=== PATIENT | female | born 1975 | race Caucasian/White ===

== ENCOUNTER 2017-08-07 07:45 | Observation (INO) | payer OTHER ==
--- NOTE | 2017-07-26 18:27 | HP ---
CC: Jose Elias Hutson NP, [facility]; Dr. Facundo Leal * ADMISSION HISTORY AND PHYSICAL: DATE OF ADMISSION: 08/07/17 ATTENDING SURGEON: Dr. Mitchell Alexis * (DARLENE Johnson, dictating). CHIEF COMPLAINT: Ventral incisional hernia. HISTORY OF PRESENT ILLNESS: This is a 41-year-old female, who underwent right colectomy in November of 2014 for what turned out to be a T3N0 carcinoma. She was treated with postoperative adjuvant chemotherapy. She has had 2 colonoscopies since surgery, the most recent showing no evidence of recurrence. Her CEA levels had been normal. Over the past year or so, she has noted a bulge in the abdomen, to the right of the umbilicus. This has never been painful or associated with any obstruction symptoms, i.e., abdominal cramping, nausea, vomiting, or change in bowels. She was seen recently by Dr. Alexis and was referred for CT scan of the abdomen and pelvis. That study confirmed the presence of a ventral hernia containing loops of small bowel, without obstruction. Dr. Alexis has discussed with her the indications for surgery, the risks, benefits, and alternatives, and we reviewed today the expected perioperative course. She would like to proceed as scheduled with open repair of ventral incisional hernia with mesh. PAST MEDICAL HISTORY: 1. Colon cancer (under the care of Dr. Leal). 2. Obesity (she has actively been trying to lose weight and is down a total of 55 pounds from her baseline). 3. She did develop a left upper extremity and internal jugular DVT in relation to a left-sided PowerPort, which was placed for chemotherapy. She was treated with anticoagulation until after the port was removed and has had no other subsequent problems. PAST SURGICAL HISTORY: Include: 1. Right colectomy, as noted above. 2. x2 via Pfannenstiel incision. 3. Placement and subsequent removal of left-sided PowerPort. CURRENT MEDICATIONS: She takes no prescription medications. She does take the following supplements: 1. Ferrous sulfate 325 mg once daily. 2. [place]-3 supplement. 3. Vitamin B12. 4. Probiotics. ALLERGIES: BIAXIN (hives), TEGADERM (blistering). FAMILY HISTORY: Positive for colorectal cancer in a paternal grandfather. Family history is negative for anesthesia problems, bleeding, or clotting disorders. SOCIAL HISTORY: The patient is . She works as a elementary vocal music teacher. She has never smoked. She denies alcohol use or other recreational drugs. REVIEW OF SYSTEMS: General: No recent constitutional symptoms or acute illnesses. Intentional weight loss as noted above. Cardiovascular: No chest pain, palpitations, history of hypertension. Respiratory: No history of asthma , chronic cough, or shortness of breath. GI: No problems reported. Most recent colonoscopy last year. : No problems reported. [employer]OR[employer] LAW[employer]ER: She has annual breast and pelvic exams done. She has not yet had an initial screening mammogram. No problems reported. PHYSICAL EXAMINATION GENERAL: Well-nourished, well-developed female, in no acute distress. VITAL SIGNS: Height 66 inches, weight 203 pounds. Other vital signs per nursing. HEENT: Pupils are equal, round, and reactive. EOMs intact. No conjunctival pallor. Oropharynx: Teeth in good repair. No intraoral lesions. Mucous membranes are moist. NECK: No lymphadenopathy in the cervical or supraclavicular areas. No neck masses or thyromegaly. LUNGS: Clear to auscultation. No wheezes. HEART: Regular rate and rhythm. No murmur noted. BREASTS: Not examined. ABDOMEN: Well-healed midline incision. In the supine position, the abdomen is soft, and nontender, without palpable masses or organomegaly. In the standing position, there is an obvious bulge, which is soft, nontender, and reducible, just to the right of the umbilicus. BACK: No spinous process or CVA tenderness. EXTREMITIES: No edema. NEUROLOGICAL: Grossly intact. SKIN: Warm and dry. No suspicious rashes or lesions. IMPRESSION: Ventral incisional hernia. PLAN: Open repair of ventral incisional hernia with mesh. DARLENE JOHNSON [id number]/[facility] #: [id number] MTDMel
[2017-08-09] MEDS ORDERED: Buffered Lidocaine 0.9% SYRIN* 5 ML/SYR SYRINGE INTRADERM ONE (09:53)
[2017-08-10] MEDS ORDERED: Sodium Citrate/Citric Acid* 15 ML UDC PO ONE (06:00)
[2017-08-10] MEDS ORDERED: Buffered Lidocaine 0.9% SYRIN* 5 ML/SYR SYRINGE ONE (10:41)
[2017-08-10] MEDS ORDERED: ceFAZolin 1 GM in Dextrose (*) 2 GM/100 ML BAG IVPB ONE (10:41)
[2017-08-10] MEDS ORDERED: Sodium Citrate/Citric Acid* 15 ML UDC ONE (10:41)
[2017-08-10] MEDS ORDERED: Heparin VIAL(*) 5000 UNITS/ML VIAL (FIVE THOUSAND) ONE (10:41)
[2017-08-10] MEDS ORDERED: Dexamethasone IV* 4 MG/ML 1 ML (4 MG) ONE (11:26)
[2017-08-10] MEDS ORDERED: Propofol* 10 MG/ML 20 ML BTL IV PUSH ONE (11:26)
[2017-08-10] MEDS ORDERED: Rocuronium* 10 MG/ML VIAL ONE (11:26)
[2017-08-10] MEDS ORDERED: Lidocaine 1.5% EPI 1:200,000* 30 ML SDV ONE (11:27)
[2017-08-10] MEDS ORDERED: fentaNYL* 50 MCG/ML 2 ML VIAL (100 MCG VIAL) ONE ×2 (11:27→14:31)
[2017-08-10] MEDS ORDERED: Midazolam* 1 MG/ML 2 ML VIAL (2 MG) ONE (11:27)
[2017-08-10] MEDS ORDERED: Bupivacaine 0.25% SDV* 30 ML ONE (11:27)
[2017-08-10] MEDS ORDERED: KETAMINE HCL* 50 MG/ML 10 ML VIAL ONE (12:08)
[2017-08-10] MEDS ORDERED: Cisatracurium* 2 MG/ML MDV 5 ML ONE (12:42)
[2017-08-10] MEDS ORDERED: fentaNYL* 50 MCG/ML 2 ML VIAL (100 MCG VIAL) IV PRN (14:11)
[2017-08-10] MEDS ORDERED: Scopolamine 1.5 mg* PATCH TRANSDERM PRN (14:11)
[2017-08-10] MEDS ORDERED: DiMENhydriNATE IV* 50 MG/ML VIAL IV PUSH PRN (14:11)
[2017-08-10] MEDS ORDERED: DiMENhydriNATE IV* 50 MG/ML VIAL ONE (15:12)
[2017-08-10] MEDS ORDERED: Scopolamine 1.5 mg* PATCH ONE (15:12)
[2017-08-10] MEDS ORDERED: Ketorolac INJ* 30 MG/ML 1 ML VIAL ONE (15:31)
[2017-08-10] MEDS ORDERED: Ondansetron INJ* 2 MG/ML VIAL IV PRN (15:37)
[2017-08-10] MEDS ORDERED: Acetaminophen TAB* 325 MG PO PRN (15:37)
[2017-08-10] MEDS ORDERED: oxyCODONE/Acetamin 5/325 MG* TAB PO PRN (15:37)
[2017-08-10] MEDS ORDERED: HYDROmorphone INJ* 1 MG/ML CARPUJECT SYRINGE IV PRN (15:37)
[2017-08-10] MEDS: Ketorolac INJ* 30 MG/ML 1 ML VIAL IV SCH ×2 (17:45→21:56)
[2017-08-10] MEDS: Docusate CAP* 100 MG PO SCH (21:53)
[2017-08-10] MEDS: Heparin VIAL(*) 5000 UNITS/ML VIAL (FIVE THOUSAND) SUBCUT SCH (21:54)
[2017-08-11] MEDS: Ketorolac INJ* 30 MG/ML 1 ML VIAL IV SCH ×4 (03:48→15:57)
--- NOTE | 2017-08-11 04:32 | OP ---
CC: Dr. Ronaldo Browning; [facility]; Dr. Facundo Leal OPERATIVE REPORT: DATE OF OPERATION: 08/10/17 DATE OF : 79 SURGEON: Ronaldo Browning MD BUILDING SPECIALIST: Maggie Evans NP ANESTHESIOLOGIST: Danish Stevenson DO ANESTHESIA: General anesthetic, local infiltration. PRE-OP DIAGNOSIS: Incisional ventral hernia. POST-OP DIAGNOSIS: Incisional ventral hernia. OPERATIVE PROCEDURE: Open repair of incisional ventral hernia with mesh via posterior component separation. DESCRIPTION OF PROCEDURE: The patient was supine on the operative table. After adequate general anesthetic, compression stockings, Daniel Hugger warmer, intravenous antibiotics, and Lakhani catheterization, the abdomen was prepped with antiseptic, draped in a sterile fashion. Previous midline incision was re- entered and large periumbilical region hernia was identified. This was approximately 6 to 7 cm in width and about 10 cm in craniocaudal direction, although a secondary hernia of about 1 cm or 2 was found about 1 cm superior to this site. The fascia was entered and the preperitoneal plane was entered to take the hernia sac off the posterior rectus. This was easily accomplished in the lower abdomen, not so much in the upper abdomen. The posterior rectus was entered medially and mobilized and this did not prove to be quite enough to allow closure, so posterior component separation was carried out into the transversus abdominis and it required bilateral release to get this to close. It was released over approximately an 8- to 10-cm area. This allowed closure of the posterior sheath of the rectus, and in the lower abdomen it was really more of a peritoneal and transversalis fascia closure. A macroporous piece of Prolene mesh was chosen approximately 20-cm [place]. It was sutured laterally at the cut edge of the transversus abdominis and then tacked superiorly and inferiorly as well using 0 Vicryl. 0 Vicryl had been used for the posterior sheath closure as well. The site was irrigated with warm saline solution. Free fluid was suctioned out. A MORRIS drain was placed into the site above the mesh and under the rectus muscle and brought out through a lateral stab wound sutured to the skin with 3-0 Prolene. Local anesthetic was administered into the space and the Kendell Lacy drain was clamped off. Anterior sheath was closed using running #1 Vicryl. Irrigation was again carried out and then subcutaneum was closed with running 3-0 Vicryl, which was also used to tack the adipose back down to the fascia to help close some of the space. The skin was then closed with surgical debi. At the completion of the procedure, the bulb was sucked up to the Kendell Lacy and the fluid was suctioned out. She was awake and brought to Recovery in good condition. There were no complications. Drain was Kendell Lacy. Sponge and instrument counts correct. Estimated blood loss was 150 mL. [id number]/[facility] #: [id number] [facility]
[2017-08-11] MEDS: Heparin VIAL(*) 5000 UNITS/ML VIAL (FIVE THOUSAND) SUBCUT SCH ×2 (06:02→14:21)
--- NOTE | 2017-08-11 09:06 | PN ---
Progress Note - Progress Note Date of Service: 08/11/17 Note: POD#1 s/p ventral hernia with mesh Feels well, no further nausea. Hungry Denies pain. Afeb, VS noted. UO large. MORRIS 70 ml, serosang. Abd soft, min tender, trace drainage on drsg. Increase diet D/C [place] Probable discharge PM today if andrew po's Probable d/c MORRIS prior to disch.
[2017-08-11] MEDS: Docusate CAP* 100 MG PO SCH (09:24)
[2017-08-11 19:36] VITALS: BP 96/52
== END 2017-08-11 19:10 | disposition home or self-care (01) ==
LOC: AA 08-10 10:15 → INTOOBSV 08-10 10:15 → SSU 08-10 16:48
PROVIDERS: ADMIT Surgery; ATTEND Surgery
DX: K43.2 Incisional hernia without obstruction or gangrene (principal); Z85.038 Personal history of other malignant neoplasm of large intestine; Z86.718 Personal history of other venous thrombosis and embolism; Z68.32 Body mass index [BMI] 32.0-32.9, adult
CPT/HCPCS: 81025; 94760; 96374; 96375; A9270-GY; C1781; G0378; J0690; J1100; J1240; J1644; J1885; J2250; J2405; J2704; J3010